=== PATIENT | female | born 1960 | race Caucasian/White ===

== ENCOUNTER 2016-09-04 06:14 | Day surgery (SDC) | payer BC ==
--- NOTE | ~2016-09-04 | EGD ---
EGD REPORT [facility] [address] [address] NAME: SHIELA ALCANTAR : [birth year] STATUS : REG [facility] [place] PAT#: [id number] AGE: 55 ADM/REG DATE : 09/04/16 MR#: [id number] REPORT SERV DATE: 09/04/16 DICTATED BY: ARISTIDES JAY DATE: 09/04/16 REPORT STATUS : Draft [facility]ANSCRIBED BY: [facility] DATE: 09/04/16 Endoscopy Center Patient Name: Shiela Alcantar Date of : 1960 Attending MD: ARISTIDES JAY MD Procedure Date No Time: 09/04/2016 Procedure: Colonoscopy Indications: High risk colon cancer surveillance: Ulcerative colitis Referring MD: YARON PORRAS Medicines: Propofol per Anesthesia Complications: No immediate complications. Procedure: Pre-Anesthesia Assessment: - ASA Grade Assessment: III - A patient with severe systemic disease. - Prior to the procedure, a History and Physical was performed, and patient medications and allergies were reviewed. The patient's tolerance of previous anesthesia was also reviewed. The risks and benefits of the procedure and the sedation options and risks were discussed with the patient. All questions were answered, and informed consent was obtained. Prior Anticoagulants: The patient has taken no previous anticoagulant or antiplatelet agents. ASA Grade Assessment: III - A patient with severe systemic disease. After reviewing the risks and benefits, the patient was deemed in satisfactory condition to undergo the procedure. After I obtained informed consent, the scope was passed under direct vision. Throughout the procedure, the patient's blood pressure, pulse, and oxygen saturations were monitored continuously. The PCF [id number] was introduced through the anus and advanced to the cecum, identified by appendiceal orifice and ileocecal valve. The colonoscopy was performed without difficulty. The patient tolerated the procedure well. The quality of the bowel preparation was good. The ileocecal valve was photographed. The ileocecal valve, appendiceal orifice and rectum were photographed. The entire colon was examined. The colonoscopy was performed without difficulty. The patient tolerated the procedure well. The quality of the bowel preparation was good. Findings: The perianal and digital rectal examinations were normal. Many medium-mouthed diverticula were found in the recto-sigmoid colon, in the sigmoid colon and in the descending colon. EGD REPORT [address] [address] NAME: SHIELA ALCANTAR : [birth year] STATUS : REG [facility]#: [id number] AGE: 55 ADM/REG DATE : 09/04/16 MR#: [id number] REPORT SERV DATE: 09/04/16 DICTATED BY: ARISTIDES JAY DATE: 09/04/16 REPORT STATUS : Draft TRANSCRIBED BY: [employer] DATE: 09/04/16 Internal hemorrhoids were found during retroflexion and were Grade I (internal hemorrhoids that do not prolapse). The rest of the colon was normal. Random biopsies of the colon were obtained to rule out dysplasia. Impression: - Diverticulosis in the recto-sigmoid colon, in the sigmoid colon and in the descending colon. - Internal hemorrhoids. Recommendation: - Patient has a contact number available for emergencies. The signs and symptoms of potential delayed complications were discussed with the patient. Return to normal activities tomorrow. Written discharge instructions were provided to the patient. - Regular diet. - Patient has a contact number available for emergencies. The signs and symptoms of potential delayed complications were discussed with the patient. Return to normal activities tomorrow. Written discharge instructions were provided to the patient. - Continue present medications. - Patient has a contact number available for emergencies. The signs and symptoms of potential delayed complications were discussed with the patient. Return to normal activities tomorrow. Written discharge instructions were provided to the patient. - Discharge patient to home (ambulatory). - Repeat colonoscopy in 3 years for surveillance. Procedure Code(s): --- Professional --- G0105, Colorectal cancer screening; colonoscopy on individual at high risk Diagnosis Code(s): --- Professional --- K64.0, First degree hemorrhoids K57.30, Diverticulosis of large intestine without perforation or abscess without bleeding K51.90, Ulcerative colitis, unspecified, without complications CPT copyright 2013 [employer]. All rights reserved. The codes documented in this report are preliminary and upon bus transportation manager review may be revised to meet current compliance requirements. Aristides Jay MD EGD REPORT [facility] [address] [place]. [address] NAME: SHIELA ALCANTAR : [birth year] STATUS : REG [facility] [place] PAT#: [id number] AGE: 55 ADM/REG DATE : 09/04/16 MR#: [id number] REPORT SERV DATE: 09/04/16 DICTATED BY: ARISTIDES JAY. DATE: 09/04/16 REPORT STATUS : Draft TRANSCRIBED BY: [employer] DATE: 09/04/16 ARISTIDES JAY MD 09/04/2016 8:29 AM This report has been signed electronically. Number of Addenda: 0 Note Initiated On: 09/04/2016 8:04 AM Scope Withdrawal Time 0 hours 9 minutes 7 seconds [address] [place] [address]
--- NOTE | ~2016-09-04 | EGD ---
EGD REPORT [facility] [address] [address] NAME: SHIELA ALCANTAR : [birth year] STATUS : REG [facility] [place] PAT#: [id number] AGE: 55 ADM/REG DATE : 09/04/16 MR#: [id number] REPORT SERV DATE: 09/04/16 DICTATED BY: ARISTIDES JAY DATE: 09/04/16 REPORT STATUS : Draft [facility]ANSCRIBED [facility]: [facility] DATE: 09/04/16 Endoscopy Center Patient Name: Shiela Alcantar Date of : 1960 Attending MD: ARISTIDES JAY MD Procedure Date No Time: 09/04/2016 Procedure: Upper GI endoscopy Indications: Epigastric abdominal pain, Suspected esophageal reflux Referring MD: YARON PORRAS Medicines: Propofol per Anesthesia Complications: No immediate complications. Procedure: Pre-Anesthesia Assessment: - ASA Grade Assessment: III - A patient with severe systemic disease. After obtaining informed consent, the endoscope was passed under direct vision. Throughout the procedure, the patient's blood pressure, pulse, and oxygen saturations were monitored continuously. The GIF H190 [id number] was introduced through the mouth, and advanced to the second part of duodenum. The upper GI endoscopy was accomplished without difficulty. The patient tolerated the procedure well. Findings: The examined esophagus was normal. Diffuse moderate inflammation characterized by erosions, erythema and friability was found in the stomach. Biopsies were taken with a cold forceps for histology. The examined duodenum was normal. Impression: - Normal esophagus. - Chronic gastritis. Biopsied. - Normal examined duodenum. Recommendation: - Discharge patient to home (ambulatory). - Return to nurse practitioner in 3 weeks. Procedure Code(s): --- Professional --- 07400, Esophagogastroduodenoscopy, flexible, transoral; with biopsy, single or multiple Diagnosis Code(s): --- Professional --- K29.50, Unspecified chronic gastritis without bleeding R10.13, Epigastric pain EGD REPORT [facility] [address] [place]. [address] NAME: SHIELA ALCANTRA : [birth year] STATUS : REG [facility] [place] PAT#: [id number] AGE: 55 ADM/REG DATE : 09/04/16 MR#: [id number] REPORT SERV DATE: 09/04/16 DICTATED BY: ARISTIDES JAY. DATE: 09/04/16 REPORT STATUS : Draft TRANSCRIBED BY: [employer] DATE: 09/04/16 CPT copyright 2013 [employer]. All rights reserved. The codes documented in this report are preliminary and upon lang path therapist review may be revised to meet current compliance requirements. Aristides Jay MD ARISTIDES JAY MD 09/04/2016 8:12 AM This report has been signed electronically. Number of Addenda: 0 Note Initiated On: 09/04/2016 8:04 AM Scope Withdrawal Time 0 hours 0 minutes 0 seconds [address] [facility] [place] [address]
[~2016-09-04 06:14] MED LIST: 8 HOUR650 MG PO; ACET500CAP PO; ALEVE220 MG PO; APRISO0.375 GM PO; ASAB PO; ASACOL PO; BENTYL10 PO; COREG3 PO; COUMADIN4 MG; EEMT HS PO; EFFEXOR XR150 MG PO; EFFEXXR37; EFFEXXR75 PO; FLEX PO; GOODY'S EX PO; HARD NAILS PO; ISORDIL10 PO; LEVSINTAB SL; LIDODERM TOP; LIPITOR20 PO; LORTAB 5 PO; MICARDIS20 MG PO; MICARDIS40 PO; NEXIUM40 PO; PCET PO; UCERIS9 MG PO; VITAMIN D31000 UNIT PO; ZOFRAN8 PO
== END 2016-09-04 23:59 | disposition home or self-care (01) ==
LOC: DMU 06:14
PROVIDERS: Internal Medicine Gastroenterology
PROC: 0DB68ZX Excision of Stomach, Via Natural or Artificial Opening Endoscopic, Diagnostic (ICD-10-PCS; principal; 2016-09-04 08:00)
PROC: 0DBE8ZX Excision of Large Intestine, Via Natural or Artificial Opening Endoscopic, Diagnostic (ICD-10-PCS; 2016-09-04 08:00)
DX: Z12.11 Encounter for screening for malignant neoplasm of colon (principal); K64.0 First degree hemorrhoids; K57.30 Diverticulosis of large intestine without perforation or abscess without bleeding; K51.90 Ulcerative colitis, unspecified, without complications; K29.50 Unspecified chronic gastritis without bleeding; I10 Essential (primary) hypertension; G47.33 Obstructive sleep apnea (adult) (pediatric); E66.9 Obesity, unspecified; Z99.81 Dependence on supplemental oxygen; Z91.040 Latex allergy status; Z88.8 Allergy status to other drugs, medicaments and biological substances; Z79.899 Other long term (current) drug therapy; Z90.49 Acquired absence of other specified parts of digestive tract; Z98.51 Tubal ligation status; Z90.710 Acquired absence of both cervix and uterus; Z98.890 Other specified postprocedural states
CPT/HCPCS: 88305